=== PATIENT | female | born 1960 | race Caucasian/White ===

== ENCOUNTER 2021-03-12 11:39 | Outpatient (REF) | payer BC, SELFPAY ==
--- NOTE | ~2021-03-12 | MM_ITS ---
EXAMINATION: MM SCREENING DIGITAL BREAST TOMOSYNTHESIS, BILATERAL CLINICAL INFORMATION: Screening. Asymptomatic. The lifetime risk of breast cancer based on the Tyrer-Cuzick Model is 9%. COMPARISON: Mammography: 10/25/2019, 04/23/2019, 11/02/2018, 07/09/2017; targeted right breast ultrasound 10/25/2019, 04/23/2019, 10/23/2018 TECHNIQUE: Digital breast tomosynthesis is performed in both the craniocaudal and mediolateral oblique views along with computer-aided detection (CAD). Synthesized 2D images are generated from the tomosynthesis. FINDINGS: There are scattered areas of fibroglandular density (ACR BI-RADS breast composition Category b). Parenchymal pattern is similar to prior studies. The asymmetric density anterior upper right breast believed to be related to old trauma/fat necrosis is stable from prior diagnostic exams. There is no developing density or interval mass or architectural abnormality in either breast. No abnormal calcifications. The axilla and skin contours are unremarkable. MM/MM tomosynthesis screening BI IMPRESSION: No significant changes from prior studies. ASSESSMENT: BI-RADS 2: Benign RECOMMENDATION: Routine annual mammography screening. This patient's information was entered into a reminder system with a target due date for their next mammogram.
== END 2021-03-12 11:40 | disposition home or self-care (01) ==
LOC: HO.MAMMO 11:39
PROVIDERS: PCP Nurse Practitioner Family; Visit Provider Nurse Practitioner Family
DX: Z12.31 Encounter for screening mammogram for malignant neoplasm of breast (principal)
CPT/HCPCS: 77063; 77067

== ENCOUNTER 2022-03-13 11:41 | Outpatient (REF) | payer BC, SELFPAY ==
--- NOTE | ~2022-03-13 | MM_ITS ---
EXAMINATION: MM SCREENING DIGITAL BREAST TOMOSYNTHESIS, BILATERAL CLINICAL INFORMATION: Screening. Asymptomatic. The lifetime risk of breast cancer based on the Tyrer-Cuzick Model is 7%. COMPARISON: Mammography: 03/12/2021, 10/25/2019, 04/23/2019, 10/20/2018 TECHNIQUE: Digital breast tomosynthesis is performed in both the craniocaudal and mediolateral oblique views along with computer-aided detection (CAD). Synthesized 2D images are generated from the tomosynthesis. FINDINGS: There are scattered areas of fibroglandular density (ACR BI-RADS breast composition Category b). Parenchymal pattern is similar to prior studies and there is no developing density or architectural abnormality. No abnormal calcifications or significant mass. The axilla are unremarkable. The skin contours are smooth. MM/MM tomosynthesis screening BI IMPRESSION: No mammographic evidence of malignancy. ASSESSMENT: BI-RADS 1: Negative RECOMMENDATION: Routine annual mammography screening. This patient's information was entered into a reminder system with a target due date for their next mammogram.
== END 2022-03-13 11:42 | disposition home or self-care (01) ==
LOC: HO.MAMMO 11:41
PROVIDERS: Visit Provider Nurse Practitioner Family
DX: Z12.31 Encounter for screening mammogram for malignant neoplasm of breast (principal)
CPT/HCPCS: 77063; 77067

== ENCOUNTER 2023-04-16 09:34 | Outpatient (REF) | payer BC, SELFPAY | END 2023-04-16 09:35 | disposition home or self-care (01) | LOC: HO.MAMMO 09:34 | PROVIDERS: PCP Registered Nurse; Visit Provider Nurse Practitioner Family | DX: Z12.31 Encounter for screening mammogram for malignant neoplasm of breast (principal) | CPT/HCPCS: 77063; 77067 ==

== ENCOUNTER → 2023-04-16 09:45 | Outpatient (BNV) | payer BC, SELFPAY | PROVIDERS: PCP Registered Nurse; Visit Provider Radiology Diagnostic Radiology | DX: Z12.31 Encounter for screening mammogram for malignant neoplasm of breast (principal) | CPT/HCPCS: 77063; 77067 ==

== ENCOUNTER 2024-05-06 09:03 | Outpatient (REF) | payer BC, SELFPAY ==
--- NOTE | ~2024-05-06 | MM_ITS ---
EXAMINATION: MM SCREENING DIGITAL BREAST TOMOSYNTHESIS, BILATERAL CLINICAL INFORMATION: Screening. Asymptomatic. COMPARISON: Mammography: Comparison is made with available priors TECHNIQUE: Digital breast mammography with tomosynthesis is performed in both the craniocaudal and mediolateral oblique views along with computer-aided detection (CAD). FINDINGS: There are scattered areas of fibroglandular density (ACR BI-RADS breast composition Category b). There are no significant masses, abnormal calcifications, or other abnormalities. MM/MM tomosynthesis screening BI IMPRESSION: No mammographic evidence of malignancy. ASSESSMENT: BI-RADS BI-RADS 1 - Negative RECOMMENDATION: Routine annual mammography screening. 1 year F/U This examination should not preclude the clinical evaluation of a suspicious palpable abnormality. This patient's information was entered into a reminder system with a target due date for their next mammogram. Electronically signed by: Judy Jorgensen DO 05/17/2024 09:11 AM SEBASTIÁN
== END 2024-05-06 09:04 | disposition home or self-care (01) ==
LOC: HO.MAMMO 09:03
PROVIDERS: PCP Registered Nurse; Visit Provider Registered Nurse
DX: Z12.31 Encounter for screening mammogram for malignant neoplasm of breast (principal)
CPT/HCPCS: 77063; 77067

== ENCOUNTER → 2024-05-06 09:15 | Outpatient (BNV) | payer BC, SELFPAY | PROVIDERS: PCP Registered Nurse; Visit Provider Internal Medicine | DX: Z12.31 Encounter for screening mammogram for malignant neoplasm of breast (principal) | CPT/HCPCS: 77063; 77067 ==

== ENCOUNTER 2025-06-07 15:52 | Outpatient (REF) | payer MEDICARE, SELFPAY ==
--- OUTSIDE RECORDS SUMMARY | 2025-06-07 16:52 | XMS_ITS | Encounter Summary ---
Author Organization [facility] Address [address] [place] [phone] Phone Care Team Providers Care Tooth Cutter Clutch Name Role Phone Teri Vazquez NP Primary Care Provider + [phone] Blaze Thomas MD, PhD Unavailable [phone] Yazmin Redmond RN Unavailable [facility] [email or web address] Encounter Details Date Type Department Care Team (Late st Contact Info) Description 12/07/2024 Procedure Pass [facility] Admitting Dept Virtual Department [address] [place], [place] [id number] Social History Tobacco Use Types Packs/Day Years Used Date Smoking Tobacco: Former Cigarettes Q uit: 1999 Smokeless Tobacco: Never Alcohol Use Standard Drinks/Week Comments Not Currently 0 (1 standard drink = 0.6 oz pur e alcohol) Education Answer Date Recorded Are you interested in more education? Not on agnieszka e 10/11/2022 Are you concerned about learning? Not on file 10/11/2022 No 10/11/2022 No 10/11/2022 Digital Access Answer Date Recorded No 11/11/2022 No 11/11/2022 Reliable internet access at home? Not on file 11/11/2022 Device with a working camera? Not on file Intimate Partner Violence Answer Date R ecorded Are you denied basic needs s uch as food, clothing, or medical care? No 12/07/2024 In the past 12 months have y ou been in a relationship with a person who hurts, threatens, or tries to control you? No 12/07/2024 Are you denied basic needs s uch as food, clothing, or medical care? No 12/07/2024 In the past 12 months have y ou been in a relationship with a person who hurts, threatens, or tries to control you? No 12/07/2024 Comments Unknown Sex and Gender Information Value Date Recorded Sex Assigned at Not on file Legal Sex Female 9:47 PM EDT Gender Identity Not on file Sexual Orientation Not on file documented as of this encounter Plan of Treatment Upcoming Encounters Date Type Department Care Team (Late st Contact Info) Description 05/31/2025 Procedure Pass [facility] - Ul[facility]ound, [facility] [address] [place] [address] 06/03/2025 Procedure Pass [facility] - CT [address] [address] 06/06/2025 Procedure Pass [facility] [place], [place] [address], 2nd Floor, [address] [place] [address] 06/10/2025 10:00 AM EST Telemedicine [facility] [address] [facility], 7th Floor, [address] [place] [address] Shelby Kovacs CNP [address] [facility] [address] [place] [address] [email or web address] 06/13/2025 1:30 PM EST Appointment [facility] - Ultrasound, [facility] [address] [place] [address] Jose Jacobsen MD [address] [place] [address] [email or web address] 06/21/2025 1:00 PM EST Blood Draw [facility] [address] [facility], 7th Floor, [address] [place] [address] Blaze Thomas MD, PhD [address] [facility] [address] [place] [phone] SHAYNA@[email or web address] 06/21/2025 2:00 PM EST Office Visit [facility] [address] [facility], 7th Floor, [address] [place] [address] Shelby Kovacs, BLAIR [address] [facility] [address] [place] [address] [email or web address] 06/21/2025 2:30 PM EST Infusion [facility] [address], 7th Floor, [address] [place] [address] Blaze Thomas MD, PhD [address] [place] [address] [id number] [place] [phone] SHAYNA@[email or web address] 06/21/2025 3:00 PM EST Infusion [facility] [address] [place] [address], 8th Floor, [address] [place] [address] Blaze Thomas MD, PhD [address] [place] [address] [id number] [place] [phone] SHAYNA@[email or web address] Yazmin Redmond RN [address] [place] [address] [email or web address] 06/23/2025 11:30 AM EST Appointment [facility], [place] [address], 2nd Floor, [address] [place] [address] Victor Manuel Bone MD, MPH [address] [facility] [address] [place] [address] [email or web address] 07/14/2025 1:45 PM EST Blood Draw [facility] [address] [facility], 7th Floor, [address] [place] [address] 07/14/2025 2:30 PM EST Office Visit [facility] [address] [facility], 7th Floor, [address] [place] [address] Shelby Kovacs, BLAIR [address] [facility] [address] [place] [address] [email or web address] 07/14/2025 4:00 PM EST Infusion [facility] [address] [facility], 8th Floor, [address] [place] [address] Terrie Warren RN [address] [place] [address] [email or web address] 08/09/2025 9:30 AM EST Appointment [facility] - [facility] [address] [place] [address] Blaze Thomas MD, PhD [address] [place] [phone] [email or web address] documented as of this encounter Visit Diagnoses Not on filedocumented in this encounter Care Teams Tooth Cutter Clutch Relationship Specialty Start Date End Date Teri Vazquez NP [address] [place] [phone] PCP - General Nurse Practitioner 12/07/24 Blaze Thomas MD, PhD [address] [place] [phone] [email or web address] Primary Oncologist Medical Oncology 06/03/25 Yazmin Redmond, CHASE [address] [place] [phone] Primary Infusion Nurse 06/03/25 documented as of this encounter Additional Source Comments The information contained in this document represents components of the legal health record. It is not the complete legal health record.[facility]
--- OUTSIDE RECORDS SUMMARY | 2025-06-07 16:52 | XMS_ITS | Encounter Summary ---
Author Organization [facility] Address [address] [place] [address] Phone Care Team Providers Care History Faculty Member Name Role Phone Teri Vazquez NP Primary Care Provider [phone] Blaze Thomas MD, PhD Unavailable [phone] Yazmin Redmond RN Unavailable [email or web address] [email or web address] Encounter Details Date Type Department Care Team (Late st Contact Info) Description 04/26/2025 Procedure Pass MRI, [facility] Imaging - [address], [address] [place] [id number] Social History Tobacco Use Types Packs/Day Years [...] 05/31/2025 Procedure Pass [facility] - Ultrasound, [facility] [address] [place] [address] 06/03/2025 Procedure Pass [facility] - CT [address] [address] 06/06/2025 Procedure Pass [facility], [place] [address] [facility] [facility], 2nd Floor, [address] [place] [address] 06/10/2025 10:00 AM EST Telemedicine [facility] [address] [facility], 7th Floor, [address] [place] [address] Shelby Kovacs CNP [address] [facility] [address] [place] [address] [email or web address] 06/13/2025 1:30 PM EST Appointment [facility] - Ultrasound, [facility] [address] [place] [address] Jose Jacobsen MD [address] [place] [address] [email or web address] 06/21/2025 1:00 PM EST Blood Draw [facility] [address] [facility], 7th Floor, [address] [place] [address] Blaze Thomas MD, PhD [address] [facility] [address] [place] [phone] SHAYNA@[facility] 06/21/2025 2:00 PM EST Office Visit [facility] [address] [facility], 7th Floor, [address] [place] [address] Shelby Kovacs, RESOURCE ANALYST [address] [facility] [address] [place] [address] [email or web address] 06/21/2025 2:30 PM EST Infusion [facility] [address] [facility], 7th Floor, [address] [place] [address] Blaze Thomas MD, PhD [address] [place] [address] [place], [place] [phone] SHAYNA@[email or web address] 06/21/2025 3:00 PM EST Infusion [facility] [address] [facility], 8th Floor, [address] [place] [address] Blaze Thomas MD, PhD [address] [place], [place] [phone] SHAYNA@[email or web address] Yazmin Redmond RN [address] [place] [address] [email or web address] 06/23/2025 11:30 AM EST Appointment [facility], [place] [address] [facility], 2nd Floor, [address] [place] [address] Victor Manuel Bone MD, MPH 55 [facility] 5 [place] [address] [email or web address] 07/14/2025 1:45 PM EST Blood Draw [facility] [address] [facility], 7th Floor, [address] [place] [address] 07/14/2025 2:30 PM EST Office Visit [facility] [place] [address] [facility], 7th Floor, [address] [place] [address] Shelby Kovacs CNP [address] [facility] [address] [place] [address] [email or web address] 07/14/2025 4:00 PM EST Infusion [facility] [address] [facility], 8th Floor, [address] [place] [address] Terrie Warren RN [address] [place] [address] [email or web address] 08/09/2025 9:30 AM EST Appointment [facility] - [facility] [address] [place] [address] Blaze Thomas MD, PhD [address] [place] [phone] SHAYNA@[email or web address] documented as of this encounter Visit Diagnoses Not on filedocumented in this encounter Care Teams History Faculty Member Relationship Specialty Start Date End Date Teri Vazquez NP [address] [place] [phone] PCP - General Nurse Practitioner 12/07/24 Blaze Thomas MD, PhD [address] [place] [phone] [email or web address] Primary Oncologist Medical Oncology 06/03/25 Yazmin Redmond, CHASE [address] [place] [address] [email or web address] Primary Infusion Nurse 06/03/25 documented as of this encounter Additional Source Comments The information contained in this document represents components of the legal health record. It is not the complete legal health record.[facility]
--- OUTSIDE RECORDS SUMMARY | 2025-06-07 16:52 | XMS_ITS | Clinical Summary ---
Author Organization [facility] Address [address] [place] [id number] Phone Care Team Providers Care Service Engineer Name Role Phone Teri Vazquez NP Primary Care Provider Anayeli Thomas MD, PhD Unavailable [phone] Yazmin Redmond RN Unavailable [facility] [email or web address] Allergies Active Allergy Reactions Criticality Noted Date Comments Gabapentin 07/23/2023 Pysch changes Scallops Nausea and/or Vomiting 07/23/2023 Medications atorvastatin (LIPITOR) 20 MG tablet Take 20 mg by mouth daily. Active DULoxetine (CYMBALTA) 60 MG capsule Take 120 mg by mouth nightly at bedtime. Active cyclobenzaprine (FLEXERIL) 10 MG tablet Take 1 tablet by mouth every morning. 4 Active MOUNJARO 5 mg/0.5 mL PnIj subcutaneous pen Inject 5 mg under the skin once a week. 5 Active therapeutic multivitamin tablet Take 1 tablet by mouth daily. 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 She also has poor sleep and wakes up feeling unrested. She is currently doing well on duloxetine prescribed by her primary care provider. She should continue with duloxetine as prescribed by Yazmin Felton NP. I advised her to get daily physical activity which has been shown to relieve the pain from fibromyalgia. She does not need follow-up in rheumatology. 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) 05/31/2025 9:30 AM EST Office Visit [facility] [address] [place] [phone] Jose Jacobsen MD 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); Localized swelling, mass or lump of neck 05/31/2025 9:30 AM EST Office Visit [facility] [address] [place] [phone] Anayeli Thomas MD, PhD 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); Screening for hypothyroidism; Screening for endocrine disorder 05/31/2025 Orders Only [facility] [address] [place] [address] Jose Jacobsen MD 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) 05/30/2025 Orders Only [facility] [address] [place] [phone] Jose Jacobsen MD 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) 05/22/2025 1:46 PM EST - 05/22/2025 11:59 PM EST Hospital Encounter [facility], [facility] - [address], [address] [place] [address] Anayeli Thomas MD, PhD Discharge Disposition: Home or Self Care 05/19/2025 10:08 AM EST - 05/19/2025 11:59 PM EST Hospital Encounter [facility] - Pet Scan, [address] [place] [address] Anayeli Thomsa MD, PhD Discharge Disposition: Home or Self Care 04/26/2025 9:30 AM EST Office Visit [facility] [address] [place] [phone] Jose Jacobsen MD 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) 04/26/2025 9:30 AM EST Office Visit [facility] [address] [place] [phone] Anayeli Thomas MD, PhD 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) 04/26/2025 Procedure Pass MRI, [facility] - [address], [address] [place] [id number] 04/26/2025 Lab Requisition [facility] Lab Main [address] [place] [address] Anayeli Thomas MD, PhD Secondary malignant neoplasm of other specified sites 04/26/2025 Orders Only [facility]le[facility] Main [address] [place] [address] Mary Sawyer 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 04/26/2025 Orders Only [facility] [address] [place] [address] Anayeli Thomas MD, PhD 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) 04/21/2025 10:30 AM EST Office Visit [facility] Plastic Surgery [address] [address] Cynthia Chaparro PA-C Gray, Mackenzie Malcolm, PA Postop check (Primary Dx); Visit for suture removal; Malignant melanoma of skin of face 04/18/2025 Orders Only [address] [address] Jesus Nguyen MD 04/15/2025 Telephone [facility] Plastic [address] [address] Luisa Eddy CMA Post-op 04/14/2025 1:00 PM EDT Procedure visit [facility] [address] [place] [address] Jesus Nguyen MD Preauricular mass (Primary Dx) from Last 3 Months Family History Medical History Relation Comments Diabetes Father Hyperlipidemia Mother Relation Status Comments Father Mother Alive Social History Tobacco Use Types Packs/Day Years Used Date Smoking Tobacco: Former Cigarettes Q uit: 1999 Smokeless Tobacco: Never Tobacco Cessation:Counseling Given: Not Answered Alcohol Use Standard Drinks/Week Comments Not Currently [...] on file Sexual Orientation Not on file Last Filed Vital Signs Vital Sign Reading Time Taken Comments Blood Pressure 118/80 02/08/2025 9:04 AM EDT Pulse 100 02/08/2025 9:04 AM EDT Temperature 36 C (96.8 F) 12/07/2024 8:59 AM EDT Respiratory Rate 20 12/07/2024 9:08 AM EDT Oxygen Saturation 96% 12/07/2024 9:08 AM EDT Inhaled Oxygen Concentration - - Weight 56.2 kg (124 lb) 05/31/2025 9:49 AM EST Height 154.9 cm (5' 1 ) 05/31/2025 9:49 AM EST Body Mass Index 23.43 05/31/2025 9:49 AM EST Plan of Treatment Upcoming Encounters Date Type Department Care Team (Late st Contact Info) Description 05/31/2025 Procedure Pass [facility] - Ultrasound, [facility] [address] [place] [address] 06/03/2025 Procedure Pass [facility] - CT [facility] [address] [place] [address] 06/06/2025 Procedure Pass [facility] CT, [place] [address] [facility], 2nd Floor, [address] [place] [address] 06/10/2025 10:00 AM EST Telemedicine [facility] Pig[facility] Les[facility] [address], 7th Floor, [address] [place] [address] Shelby Kovacs, SLIP COVER SEAMSTRESS [address] [facility] [address] [place] [address] [email or web address] 06/13/2025 1:30 PM EST Appointment [facility] - Ultrasound, [facility] [address] [place] [address] Jose Jacobsen MD [address] [place] [address] [email or web address] 06/21/2025 1:00 PM EST Blood Draw [facility] [address] [facility], 7th Floor, [address] [place] [address] Anayeli Thomas MD, PhD [address] [facility] [address] [place] [phone] [email or web address] 06/21/2025 2:00 PM EST Office Visit [facility] [address] [place] [address], 7th Floor, [address] [place] [address] Shelby Kovacs, BLAIR [facility] [address] [place] [address] [email or web address] 06/21/2025 2:30 PM EST Infusion [facility] [address] [facility], 7th Floor, [address] [place] [address] Anayeli Thomas MD, PhD [address] [facility] [address] [place] [phone] [email or web address] 06/21/2025 3:00 PM EST Infusion [facility] [address] [place] [address], 8th Floor, [address] [place] [address] Anayeli Thomas MD, PhD [address] [facility] [address] [phone] [email or web address] Yazmin Redmond RN [address] [place] [address] [email or web address] 06/23/2025 11:30 AM EST Appointment [facility] CT, [place] [address] [facility], 2nd Floor, [address] [place] [address] Victor Manuel Bone MD, MPH [address] [facility] [address] [place] [address] [email or web address] 07/14/2025 1:45 PM EST Blood Draw [facility] [address] [facility], 7th Floor, [address] [place] [address] 07/14/2025 2:30 PM EST Office Visit [facility] [address] [facility], 7th Floor, [address] [place] [address] Shelby Kovacs SLIP COVER SEAMSTRESS [address] [facility] [address] [place] [address] [email or web address] 07/14/2025 4:00 PM EST Infusion [facility] [address] [facility], 8th Floor, [address] [place] [address] Terrie Warren RN [address] [place] [address] [email or web address] 08/09/2025 9:30 AM EST Appointment [facility] - CT [address] [place] [address] [facility] [place] [address] Anayeli Thomas MD, PhD [address] [facility] [address] [place] [phone] [email or web address] Health Maintenance Due Date Last Done Comments LIPID PANEL 1960 DEPRESSION SCREENING 1972 HEPATITIS C SCREENING 1978 HIV ONE-TIME SCREENING (18-65 YEARS) 1978 MAMMOGRAM 2000 COLOGUARD 2005 FIT TEST 2005 FOBT 2005 SIGMOIDOSCOPY 2005 VIRTUAL COLONOSCOPY 2005 RSV VACCINE (1 - Risk 50-74 years 1-dose series) 2010 PNEUMOCOCCAL VACCINES (50+ years) (2 of 2 - PCV) 06/23/2019 06/23/2018 INFLUENZA VACCINE (#1) 2025 , 05/03/2023, 04/05/2022, Additional history exists COVID-19 VACCINE (2024- season) 2025 03/15/2024, 03/15/2024, 05/03/2023, Additional history exists PAP SMEAR 10/22/2025 10/22/2022 SMOKING Hx and SMOKELESS TOBACCO SCREENING 05/31/2026 05/31/2025 Adult Td,Tdap Booster 09/08/2031 09/07/2021, 012 COLONOSCOPY 12/07/2034 12/07/2024 COLORECTAL CANCER SCREENING 12/07/2034 ZOSTER VACCINES Completed 01/18/2021, 09/25/2020 HEPATITIS A VACCINES Aged Out No long er eligible based on patient's age to complete this topic HIB VACCINES Aged Out No longer eligi ble based on patient's age to complete this topic MENINGOCOCCAL VACCINES (ACWY) Aged Out No longer eligible based on patient's age to complete this topic MENINGOCOCCAL VACCINES (B) Aged Out N o longer eligible based on patient's age to complete this topic Medical Devices Implanted Type Area [employer] 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 Device Identifier Shelf Expiration Date Model / Serial / Lot Metal [id number] Procedures Procedure Name Priority Date/Time Associated Diagnosis Comments MRI BRAIN WITH AND WITHOUT CONTRAST Routine 05/22/2025 2:36 PM EST 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 NM PET CT SKULL BASE TO MID THIGHS Routine 05/19/2025 11:44 AM EST 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 POCT GLUCOSE Routine 05/19/2025 10:19 AM EST SNAPSHOT NGS Routine 04/26/2025 3:10 PM EST 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 SNAPSHOT NGS Routine 04/26/2025 3:10 PM EST 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 HLA-A*02:01 GENOTYPING Routine 11:04 AM EST Secondary malignant neoplasm of other specified sites CBC AND DIFFERENTIAL Routine 04/26/2025 11:04 AM EST 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 CBC AND DIFFERENTIAL Routine 04/26/2025 11:04 AM EST 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 No intracranial metastases. 2. 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 Consider inclusion of arterial spin labeled (ASL) images at next surveillance imaging to exclude arteriovenous shunting given mild accompanying parenchymal signal changes. 3. Ill-defined signal abnormality corresponding to FDG avidity in the anterior right superficial parotid gland presumably represents postoperative change from recent excision. 4. No definite correlate to site of FDG avidity within the right external ear. Recommend correlation with direct inspection. 5. Although not enlarged, abnormal central T1 signal within the FDG avid right IIA node raises suspicion for metastasis. Narrative 05/25/2025 9:58 PM EST MRI BRAIN WITH AND WITHOUT CONTRAST Referring clinician's provided indication for this examination in [facility]: * Melanoma, stage 0/I/II, asymptomatic, initial workup TECHNIQUE: MRI BRAIN WITH AND WITHOUT CONTRAST Multi-sequence, multi-planar MRI of the brain was performed before and after intravenous contrast. COMPARISON: None FINDINGS: Brain Parenchyma: No evidence of acute infarct, mass lesion, or hemorrhage. Right frontal developmental venous anomaly with minor associated parenchymal signal changes. No enhancement suspicious for metastasis. Ventricular System and Extra-Axial Spaces: There is no evidence of midline shift or hydrocephalus. Extracranial Structures: Expected arterial flow signal is observed at the skull base. Partial visualized ACDF. Heterogeneous T2 signal within the superficial anterior right parotid (14:3) corresponding to the areas of FDG avidity. Equivocal FLAIR hyperintensity versus incomplete fat suppression within the right auricle corresponding to the site of abnormal FDG uptake (12:4) without correlate on other sequences. Abnormal central T1 hypointensity within a right level IIA node (16:68). Procedure Note Nelson Abebe MD - 05/25/2025 MRI BRAIN WITH AND WITHOUT CONTRAST Referring clinician's provided indication for this examination in [facility]: *Melanoma, stage 0/I/II, asymptomatic, initial workup TECHNIQUE: MRI BRAIN WITH AND WITHOUT CONTRAST Multi-sequence, multi-planar MRI of the brain was performed before andafter intravenous contrast. COMPARISON: None FINDINGS: Brain Parenchyma: No evidence of acute infarct, mass lesion, orhemorrhage. Right frontal developmental venous anomaly with minorassociated parenchymal signal changes. No enhancement suspicious formetastasis. Ventricular System and Extra-Axial Spaces: There is no evidence of midlineshift or hydrocephalus. Extracranial Structures: Expected arterial flow signal is observed at theskull base. Partial visualized ACDF. Heterogeneous T2 signal within thesuperficial anterior right parotid (14:3) corresponding to the areas ofFDG avidity. Equivocal FLAIR hyperintensity versus incomplete fatsuppression within the right auricle corresponding to the site of abnormalFDG uptake (12:4) without correlate on other sequences. Abnormal centralT1 hypointensity within a right level IIA node (16:68). IMPRESSION: 1. No intracranial metastases. 2. 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 3. Ill-defined signal abnormality corresponding to FDG avidity in theanterior right superficial parotid gland presumably representspostoperative change from recent excision. 4. No definite correlate to site of FDG avidity within the right externalear. Recommend correlation with direct inspection. 5. Although not enlarged, abnormal central T1 signal within the FDG avidright IIA node raises suspicion for metastasis. us Anayeli Thomas MD, PhD IMG MR HEAD/NECK Final Re sult * NM PET CT Skull Base to Mid Thighs (05/19/2025 11:44 AM EST) Anatomical Region Laterality Modality Positron Emissio n Tomography (PET) 05/20/2025 1:34 PM EST Impressions 05/20/2025 7:07 PM EST Moderately avid right anterior parotid lesion may represent metastatic disease or primary parotid lesion. Adjacent cutaneous and subcutaneous stranding may be inflammatory/postprocedural changes or possibly neoplastic. Consider MR evaluation. Moderately avid subcentimeter right level 2A lymph node may be reactive or metastatic. Small moderate focus of uptake in right ear could be inflammatory or neoplastic. Recommend direct inspection. Narrative 05/20/2025 7:07 PM EST NM PET CT SKULL BASE TO MID THIGHS INDICATION: *Skin cancer, staging. FDG PET/CT for subsequent treatment strategy. TECHNIQUE: 10 mCi F-18 FDG was injected. Approximately 60 minutes later, tomographic images of the body from skull base to proximal thigh were acquired with low dose attenuation correction CT. Images were reviewed in axial, coronal, and sagittal projections. The patient's blood glucose at the time of imaging was 98 mg/dl. PET images were obtained and processed using very low dose CT for attenuation correction and localization purposes only. No diagnostic CT images were obtained as part of this examination. Although incidental CT findings may be identified, this examination is not designed to provide diagnostic quality CT evaluation, and is not a substitute for diagnostic CT imaging. COMPARISON: None of the FINDINGS: NECK: Acquisition parameters and the field of view were optimized for the whole body and are suboptimal for assessment of the brain parenchyma. 1.6 x 0.9 cm right anterior parotid soft tissue density lesion with moderate uptake, SUV max 2.3 (3:60) with adjacent cutaneous and subcutaneous thickening, image 162 through 158. 8mm right level 2A lymph node with moderate uptake, SUV max 2.1, measuring 53. Small focus of uptake along right inferior earlobe, image 164. CHEST: There are no sites of FDG uptake outside physiologic distribution in the chest. Thoracic aortic calcification. ABDOMEN AND PELVIS: There are no sites of FDG uptake outside physiologic distribution in the abdomen or pelvis. MUSCULOSKELETAL: There are no sites of FDG uptake outside physiologic distribution in the skeleton. Moderate focal uptake along the right first costomanubrial joint, likely degenerative changes. Procedure Note Deepika Judd MBBS - 05/20/[address] SKULL BASE TO MID THIGHS INDICATION: *Skin cancer, staging. FDG PET/CT for subsequent treatment strategy. TECHNIQUE: 10 mCi F-18 FDG was injected. Approximately 60 minutes later, tomographicimages of the body from skull base to proximal thigh were acquired withlow dose attenuation correction CT. Images were reviewed in axial,coronal, and sagittal projections. The patient's blood glucose at the timeof imaging was 98 mg/dl. PET images were obtained and processed using very low dose CT forattenuation correction and localization purposes only. No diagnostic CTimages were obtained as part of this examination. Although incidental CT findings may be identified, this examination is notdesigned to provide diagnostic quality CT evaluation, and is not asubstitute for diagnostic CT imaging. COMPARISON: None of the FINDINGS: NECK: Acquisition parameters and the field of view were optimized for the wholebody and are suboptimal for assessment of the brain parenchyma. 1.6 x 0.9 cm right anterior parotid soft tissue density lesion withmoderate uptake, SUV max 2.3 (3:60) with adjacent cutaneous andsubcutaneous thickening, image 162 through 158. 8mm right level 2A lymphnode with moderate uptake, SUV max 2.1, measuring 53. Small focus of uptake along right inferior earlobe, image 164. CHEST: There are no sites of FDG uptake outside physiologic distribution in thechest. Thoracic aortic calcification. ABDOMEN AND PELVIS: There are no sites of FDG uptake outside physiologic distribution in theabdomen or pelvis. MUSCULOSKELETAL: There are no sites of FDG uptake outside physiologic distribution in theskeleton. Moderate focal uptake along the right first costomanubrial joint, likelydegenerative changes. IMPRESSION: Moderately avid right anterior parotid lesion may represent metastaticdisease or primary parotid lesion. Adjacent cutaneous and subcutaneousstranding may be inflammatory/postprocedural changes or possiblyneoplastic. Consider MR evaluation. Moderately avid subcentimeter right level 2A lymph node may be reactive ormetastatic. Small moderate focus of uptake in right ear could be inflammatory orneoplastic. Recommend direct inspection. us Anayeli Thomas MD, PhD IMG NM PET Final Res ult * POCT Glucose (05/19/2025 10:19 AM EST) Glucose 98 70 - 99 mg/dL 05/19/2025 10:24 AM EST [facility] Blood (Blood) 05/19/2025 10: 19 AM EST 05/19/2025 10:24 AM EST us Anayeli Thomas MD, PhD LAB POCT DOCKED DEVICE UN SOLICTED RESULTS Final Result [facility] [address] [place], [place] [id number] * SNAPSHOT NGS (04/26/2025 3:10 PM EST) Result 05/18/2025 9:12 AM EST [facility] DEPARTMENT OF PATHOLOGY MM Text Report TEST - [id number] Assay INDICATION FOR TEST: Skin Nodular Melanoma Involving Parotid Gland SPECIMEN(S) TESTED: [id number] A1 ([place], [place], [facility]) RESULTS: DNA Variants: Variants of Clinical/Potential Significance: BRAF NP_004324.2:p.Gly4 66Glu (NM_004333.6:c.139 7G>A) (46%) CTNNB1 NP_001895.1:p.Ser3 7Phe (NM_001904.3:c.110 C>T) (45%) MEN1 NP_000235.2:p.Ser2 58Leu (NM_000244.3:c.773 C>T) (72%) NF1 NP_000258.1:p.Arg4 16Ter (NM_000267.3:c.124 6C>T) (48%) NF1 NP_000258.1:p.Gly1 219Glu (NM_000267.3:c.365 6G>A) (45%) NOTCH2 NP_077719.2:p.Arg1 13Ter (NM_024408.4:c.337 C>T) (6%) TERT promoter variant (hg19 chr5:g.3835236D>A; c.-124C>T; C228T) (46%) Variants of Unknown Significance: ALK NP_004295.2:p.Cys4 87Tyr (NM_004304.5:c.146 0G>A) (44%) FLT4 NP_002011.2:p.Gly7 9Arg (NM_002020.5:c.235 G>A) (44%) FLT4 NP_002011.2:p.Pro1 116Thr (NM_002020.5:c.334 6C>A) (47%) KDR NP_002244.1:p.Pro3 51Thr (NM_002253.3:c.105 1C>A) (47%) KMT2C NP_733751.2:p.Val3 90Lys (NM_170606.3:c.116 8_1169delinsAA) (7%) NTRK1 NP_002520.2:p.Leu1 22Phe (NM_002529.4:c.364 C>T) (62%) PDGFRB NP_002600.1:p.Gly3 9Arg (NM_002609.4:c.115 G>A) (44%) PLCB4 NP_000924.3:p.Arg2 5Gly (NM_000933.4:c.73A >G) (50%) PLCB4 NP_000924.3:p.Glu1 086Lys (NM_000933.4:c.325 6G>A) (50%) Copy Number Variants: AKT3 Loss, low level EVA Loss, low level CCND1 High Gain DDR2 Gain, low level FGF19 High Gain FGFR3 Gain, low level FH Loss, low level JAK2 Loss MDM4 Loss, low level MRE11 Loss, low level MTAP Loss, low level NTRK1 Gain ROE6M3T Loss, low level Tumor Mutation [place]: High (25.9 mutations per megabase (mutations/Mb)), with a pattern consistent with exposure to ultraviolet radiation. INTERPRETATION: POSITIVE for reportable variants in AKT3, ALK, EVA, BRAF, CCND1, CTNNB1, DDR2, FGF19, FGFR3, FH, FLT4, JAK2, KDR, KMT2C, MDM4, MEN1, MRE11, MTAP, NF1, NOTCH2, NTRK1, PDGFRB, PLCB4, IBV9A3I, and TERT. TEST INFORMATION: This test utilizes Anchored Multiplex PCR (polymerase chain reaction) (AMP [1]) for single nucleotide variant (SNV), insertion/deletion (indel), and copy number detection in genomic DNA using the [employer] platform and [employer] NextSeq next generation sequencing (NGS). Briefly, a board-certified molecular pathologist performed microscopic review of routine H&E-stained sections using validated digital pathology or traditional microscopic workflows. The appropriate region(s) of interest were identified and circled, followed by tumor enrichment via macrodissection prior to nucleic acid extraction. The [employer] VariantPlex [employer] Solid Tumor v2 protocol was used to target the coding sequence of genes listed below. Illumina NextSeq 2 x 150 base paired-end sequencing reads were demutiplexed to generate FASTQ files that were transferred to the [employer] Analysis pipeline for read alignment to the hg19 human genome, variant detection, and annotation. This test has been validated to detect (1) SNV and indel variants at 5% allelic frequency or higher in target regions with sufficient read coverage, (2) gene level copy number variants, and (3) an approximated tumor mutation burden (TMB). TMB (tumor mutation burden): A numeric TMB prediction score (reported as mutations/megabase (Mb)) was generated after standard DNA somatic variant analysis, filtering, counting, and fitting based on the [employer] TMB model to provide a score that correlates with TMB as measured by whole exome sequencing (ALICIA). A summarized TMB category (high, intermediate or low) interpretation is also provided. Due to variability in panel-based TMB calculations, an intermediate range of 5-20 is adopted between the low and high categories. Disclaimer: TMB estimation based on variant counting in targeted panels is an approximation of tumor mutation burden as compared to other assays (e.g., ALICIA). Copy number analysis shows the following limitations: (1) aneuploidy cannot be distinguished from gene specific copy gains or copy losses, (2) limited sensitivity for borderline/weak copy gains or copy losses, (3) limited sensitivity in specimens with low tumor cellularity, (4) limited performance in poor quality specimens showing suboptimal coverage, and (5) absolute copy number status cannot be determined. The SNV/indel and CNV gene targets covered by this test are as follows (coding sequence): ABL1, ACVR1, AKT1, AKT2, AKT3, ALK, APC, AR, ARID1A, ARID1B, ARID2, EVA, ATR, ATRX, AURKA, B2M, BAP1, BARD1, BCOR, BLM, BMPR1A, BRAF, BRCA1, BRCA2, BRIP1, CCND1, CCND2, CCND3, CCNE1, CDH1, CDK12, CDK4, CDK6, CDKN2A, CDKN2B, CHD1, CHEK1, CHEK2, CIC, CSF1R, CTNNB1, DAXX, DDR2, DDX3X, DICER1, EGFR, EIF1AX, EP300, EPCAM, ERBB2, ERBB3, ERBB4, ERCC1, ERCC2, ESR1, EZH2, FANCA, FANCI, FANCL, FBXW7, FGF19, FGFR1, FGFR2, FGFR3, FGFR4, FH, FLCN, FLT1, FLT3, FLT4, FOXA1, FOXL2, FUBP1, GNA11, GNAQ, GNAS, H3F3A, H3F3B, KVSI1Y2X, LPEK3Y8F, HNF1A, HRAS, IDH1, IDH2, JAK1, JAK2, JAK3, KDM6A, KDR, KEAP1, KIT, KLF4, KMT2C, KMT2D (MLL2), KRAS, LZTR1, MAP2K1 (MEK1), MAP2K2 (MEK2), MAP3K1, MDM2, MDM4, MED12, MEN1, MET, MLH1, MPL, MRE11A, MSH2, MSH3, MSH6, MTAP, MTOR, MUC16, MUTYH, MYC, MYCN, MYOD1, NBN, NF1, NF2, NKX2-1, NOTCH1, NOTCH2, NOTCH3, NOTCH4, NPM1, NRAS, NTRK1, NTRK2, NTRK3, PALB2, PBRM1, PDGFRA, PDGFRB, PIK3CA, PIK3CB, PIK3R1, PLCB4, PMS2, POLD1, POLE, CZZ0D4O, BPU1O0P, PRKD1, PTCH1, PTEN, PTPN11, RAD50, RAD51, RAD51B, RAD51C, RAD51D, RAD54L, RAF1, RB1, RET, RHOA, RICTOR, RNF43, ROS1, SDHA, SDHB, SDHC, SDHD, SETD2, SF3B1, SMAD2, SMAD4, SMARCA4, SMARCB1, SMO, SRC, SRSF2, STAG2, STK11, SUFU, TERT, TGFBR2, TP53, TP63, TRAF7, TSC1, TSC2, TSHR, U2AF1, VHL, XRCC2, XRCC3. SCHMIDT ANALYSIS PIPELINE VERSION: 7.4.2 SCHMIDT ANALYSIS WEB APPLICATION VERSION: 7.4.4 MATCHED ANNOTATION FROM NCBI AND EMBL-TERESA (KIRAN) VERSION: 1.0 REFERENCES: Juan et al. Jordyn Med 2014;20(12):1479-8 4. [PMID: [id number]] This test was developed, and its performance characteristics were determined by the [facility]. It has not been cleared or approved by the U.S. Food and Drug Administration. The FDA has determined that such clearance or approval is not necessary. This test is used for clinical purposes. Pursuant to the requirements of CLIA 88, this laboratory has established and verified the test accuracy and precision. Testing was performed at the [facility], [facility], [address] [place] [address]. Signed by: Cheyanne Swan, Ph.D., [facility] Date: 05/18/2025 9:10AM 05/18/2025 9:12 AM EST [facility] DEPARTMENT OF PATHOLOGY MM See Results PDF See Pathologist Report 05/18/2025 9:12 AM EST [facility] DEPARTMENT OF PATHOLOGY MM Signing Provider [id number] 05/18/2025 9:12 AM EST [facility] DEPARTMENT OF PATHOLOGY MM Tissue - General (Skin) 04/26/2025 3:10 PM EST 05/04/2025 12:01 PM EST us Anayeli Thomas MD, PhD LAB MOLECULAR/CYTOGENETIC S ORDERABLES Final Result Performing Organization Address City/[facility]/ZIP Co de Phone Number [facility] [place] [address] * Lactate Dehydrogenase (LDH) (04/26/2025 11:04 AM EST) LDH 178 135 - 214 U/L 04/26/2025 12:36 PM EST [facility] Blood (Blood) Venipuncture / Unknown 04/26/2025 11:04 AM EST 04/26/2025 11:29 AM EST us Anayeli Thomas MD, PhD LAB BLOOD BKR [place] [address] * Comprehensive Metabolic Panel (CMP) (04/26/2025 11:04 AM EST) Sodium 139 136 - 145 mmol/L 04/26/2025 12:36 PM [facility] Potassium 4.0 3.4 - 5.1 mmol/L 04/26/2025 12:36 PM [facility] Chloride 102 98 - 107 mmol/L 04/26/2025 12:36 PM [facility] CO2 26 20 - 31 mmol/L 04/26/2025 12:36 PM [facility] Anion Gap 11 3 - 17 mmol/L 04/26/2025 12:36 PM [facility] BUN 19 6 - 23 mg/dL 04/26/2025 12:36 PM [facility] Creatinine 0.75 0.50 - 1.00 mg/dL 04/26/2025 12:36 PM [facility] eGFR 89 >59 mL/min/1. 73m2 04/26/2025 12:36 PM [facility] Comment:Estimated glomerular filtration rate calculated using the CKD-EPI refit equation. Glucose 86 70 - 99 mg/dL 04/26/2025 12:36 PM [facility] Calcium 9.3 8.5 - 10.5 mg/dL 04/26/2025 12:36 PM [facility] AST 22 9 - 32 U/L 04/26/2025 12:36 PM [facility] ALT 16 7 - 33 U/L 04/26/2025 12:36 PM [facility] Alkaline Phosphatase 46 40 - 130 U/L 04/26/2025 12:36 PM [facility] Bilirubin, Total 0.4 0.0 - 1.2 mg/dL 04/26/2025 12:36 PM [facility] Total Protein 7.2 6.4 - 8.3 g/dL 04/26/2025 12:36 PM [facility] Albumin 4.4 3.5 - 5.2 g/dL 04/26/2025 12:36 PM [facility] Globulin 2.8 1.9 - 4.1 g/dL 04/26/2025 12:36 PM [facility] Blood (Blood) Venipuncture / Unknown 04/26/2025 11:04 AM EST 04/26/2025 11:29 AM EST us Anayeli Thomas MD, PhD LAB BLOOD BKR ORDERABLES Final Result [facility] [address] [place] [address] * (ABNORMAL) CBC and Differential (04/26/2025 11:04 AM EST) WBC 7.66 4.00 - 11.00 K/uL 04/26/2025 11:56 AM [facility] RBC 4.48 4.00 - 5.20 M/uL 04/26/2025 11:56 AM [facility] Hemoglobin 13.5 12.0 - 16.0 g/dL 04/26/2025 11:56 AM [facility] Hematocrit 40.6 36.0 - 46.0 % 04/26/2025 11:56 AM [facility] MCV 90.6 80.0 - 100.0 fL 04/26/2025 11:56 AM [facility] MCH 30.1 27.0 - 31.0 pg 04/26/2025 11:56 AM [facility] MCHC 33.3 32.0 - 36.0 g/dL 04/26/2025 11:56 AM [facility] MPV 8.2(L) 8.4 - 12.0 fL 04/26/2025 11:56 AM [facility] RDW-CV 13.2 11.5 - 14.5 % 04/26/2025 11:56 AM [facility] PLT 316 150 - 450 K/uL 04/26/2025 11:56 AM [facility] Neutrophils 68.4 % 04/26/2025 11:56 AM [facility] Lymphocytes 19.6 % 04/26/2025 11:56 AM [facility] Monocytes 9.9 % 04/26/2025 11:56 AM [facility] Eosinophils 0.9 % 04/26/2025 11:56 AM [facility] Basophils 0.9 % 04/26/2025 11:56 AM [facility] Imm Grans 0.3 % 04/26/2025 11:56 AM [facility] NRBC 0.0 <=0.0 /100 WBCs 04/26/2025 11:56 AM [facility] Absolute Neutrophils 5.24 1.92 - 7.60 K/uL 04/26/2025 11:56 AM [facility] Absolute Lymphocytes 1.50 0.72 - 4.10 K/uL 04/26/2025 11:56 AM [facility] Absolute Monocytes 0.76 0.16 - 1.10 K/uL 04/26/2025 11:56 AM [facility] Absolute Eosinophils 0.07 0.00 - 0.50 K/uL 04/26/2025 11:56 AM [facility] Absolute Basophils 0.07 0.00 - 0.15 K/uL 04/26/2025 11:56 AM [facility] Absolute Imm Grans 0.02 0.00 - 0.09 K/uL 04/26/2025 11:56 AM [facility] Absolute NRBC 0.00 <=0.00 K cells/uL 04/26/2025 11:56 AM [facility] Absolute Neutrophils 5.24 1.92 - 7.60 K/uL 04/26/2025 11:56 AM [facility] Comment:Automated cell count . Manual ANC may differ if performed. Diff Type Auto 04/26/2025 11:56 AM [facility] Blood (Blood) Venipuncture / Unknown 04/26/2025 11:04 AM EST 04/26/2025 11:29 AM EST us Anayeli Thomas MD, PhD LAB BLOOD BKR ORDERABLES Final Result Performing Organization Address City/[facility]/ZIP Co de Phone Number [address] [address] * HLA-A*02:01 Genotyping (04/26/2025 11:04 AM EST) HLA Result Positive for HLA-A*02:01 (see attached PDF report) 05/20/2025 4:40 PM EST [facility] Blood (Blood) 04/26/2025 11: 04 AM EST 04/26/2025 3:13 PM EST us Anayeli Thomas MD, PhD LAB HLA ORDERABLES Final Result Performing Organization Address City/[facility]/ZIP Co de Phone Number [address] [address] * Anatomic Pathology (04/14/2025 12:00 AM EDT) 04/14/2025 04/14/2025 3:2 6 PM EDT Narrative SEE NARRATIVE - 04/15/2025 3:57 PM EDT [address] [address] Piston Maker: Art Singh MD Surgical Pathology Report FINAL PATHOLOGIC DIAGNOSIS: SKIN, RIGHT PREAURICULAR, EXCISION: NODULAR MELANOMA INVOLVING PAROTID GLAND. Note: The tumor likely represents a metastasis. No lymphoid tissue is identified. The tumor cells contain dense brown pigment. Immunostains reveal that the tumor cells are reactive with both [place] 1 and S100 in the cytoplasm. Electronically Signed Out By Imani Mckinnon MD By his/her signature above, the pathologist listed as making the Final Diagnosis certifies that he/she has personally reviewed this case and confirmed or corrected the diagnosis. CLINICAL HISTORY Preauricular mass (R22.0) SPECIMENS SUBMITTED: A: SKIN, RIGHT PREAURICULAR, EXCISION GROSS DESCRIPTION SKIN, RIGHT PREAURICULAR, EXCISION: Received in formalin is a 1.7 x 1.6 x 1.5 cm fluctuant peacock-pink nodule which is marked with ink and sectioned to reveal a smooth lined unilocular cystic cavity with hemorrhagic, amorphous peacock-red contents. A new accounts banking representative section is submitted in a single cassette labeled A1. Grossed by: SONNY Lira, SHANKAR([facility]) [id number] 04/14/2025 Grossing Staff: [id number] One or more of the reagents used in immunohistochemical testing in this case may not have been cleared or approved by the U.S. Food and Drug Administration (FDA). The FDA has determined that such clearance or approval is not necessary. These tests are used for clinical purposes. This should not be regarded as investigational or for research. These reagents' performance characteristics have been determined by the [facility]. This laboratory is certified under the Clinical Laboratory Improvement Amendments of 1988 (CLIA-88) as qualified to perform high complexity clinical laboratory testing. Immunohistochemistry is performed on formalin-fixed paraffin-embedded sections (unless otherwise specified) and on a Benchmark Ultra immunostainer which utilizes a proprietary polymer detection system. Positive, negative and internal controls, when present, stain appropriately. Patient Name: RAPHAEL BEDOYA : 1960 (Age: 64) Sex: F Institution: [facility] Location: [facility] Date of Operation: 04/14/2025 Date of Reported: 04/15/2025 15:57 Results To: Jesus Nguyen MD, PAT Vazquez PRESIDENT us Jesus Nguyen MD LAB PATHOLOGY ORDERABLES Final R esult SEE NARRATIVE * ENDOSCOPY, COLON (12/07/2024 8:32 AM EDT) Narrative Transcriptions Anayeli Pka MD - 12/07/2024 8:32 AM EDT [facility] Patient Name: Raphael Bedoya Attending MD:: ANAYELI PAK MD, Procedure Date: 12/07/2024 8:32 AM Date of : 1960 Age: 64 Admit Type: Outpatient Gender: Female Room: [facility] Referring MD: Teri Vazquez Exam Type: Colonoscopy Indications: Screening for colorectal malignant neoplasm, Last colonoscopy: November 2014 Medications: Propofol per Anesthesia Procedure: Informed consent was obtained from the patientafter discussion of the indications, limitations, alternatives, benefits, and risks of the procedure. Risks specifically discussed include but are not limited to medication reactions, missed lesions, bleeding, perforation, or the need for emergent surgery. Throughout the procedure, the patient's blood pressure, pulse, end-tidal CO2, and oxygensaturations were monitored continuously. The Olympus adult variable colonoscope [id number] #[id number] was introduced through the anus and advanced to the cecum, identified by appendiceal orifice andileocecal valve. The ileocecal valve, appendiceal orifice,and rectum were photographed. The colonoscopy was performed without difficulty. The patient tolerated the procedure well. The quality of the bowel preparation was excellent. The bowel preparationused was GoLYTELY via split dose instruction. Complications: No immediate complications. Estimated blood loss:None. Findings: The digital rectal exam was normal. Pertinent negatives include no palpable rectal lesions. Hemorrhoids were found on perianal exam. The retroflexed view of the distal rectum and anal verge was normal and showed no anal or rectal abnormalities. Many small and large-mouthed diverticula were foundin the sigmoid colon. The exam was otherwise without abnormality. Retroflexion in the right colon was performed. Impression: - Hemorrhoids found on perianal exam. - The distal rectum and anal verge are normal on retroflexion view. - Diverticulosis in the sigmoid colon. - The examination was otherwise normal. - No specimens collected. Recommendation: - High fiber diet. - Repeat colonoscopy in 10 years for screening purposes. ANAYELI PAK MD 12/07/2024 8:59:54 AM This report has been signed electronically. Number of Addenda: 0 Note Initiated On: 12/07/2024 8:32 AM Procedure Code(s): --- Professional --- 64143, Colonoscopy, flexible; diagnostic, including collection of specimen(s) by brushing or washing, when performed (separateprocedure) --- Technical --- 35729, Colonoscopy, flexible; diagnostic, including collection of specimen(s) by brushing or washing, when performed (separateprocedure) Diagnosis Code(s): --- Professional --- Z12.11, Encounter for screening for malignantneoplasm of colon K64.9, Unspecified hemorrhoids K57.30, Diverticulosis of large intestine without perforation or abscess without bleeding --- Technical --- Z12.11, Encounter for screening for malignantneoplasm of colon K64.9, Unspecified hemorrhoids K57.30, Diverticulosis of large intestine without perforation or abscess without bleeding CPT copyright 2021 [employer]. All rights reserved. The codes documented in this report are preliminary and upon day care aide reviewmay be revised to meet current compliance requirements. Procedure Date: 12/07/2024 8:32:[address] [place] [id number] us Teri Vazquez NP GI PROCEDURE ORDERABLES Alice sanches Result * Pap Test (10/22/2022 12:00 AM EDT) 10/22/2022 10/23/2022 9:2 7 AM EDT Narrative SEE NARRATIVE - 10/25/2022 1:49 PM EDT [address] [address] Piston Maker: Imani Mckinnon MD DENTAL HYGIENE ADMINISTRATIVE ASSISTANT Cytology Report FINAL DIAGNOSIS A. PAP SMEAR (SUREPATH) CE: SPECIMEN ADEQUACY: Satisfactory for evaluation; transformation zone present. INTERPRETATION: NEGATIVE FOR INTRAEPITHELIAL LESION OR MALIGNANCY. Electronically Signed Out By: MICHELE Jovel(ASCP) The Pap test is a screening test primarily for squamous cancers and precursors and has associated false-negative and false-positive results. New technologies such as liquid-based preparations may decrease but will not eliminate all false-negative results. Regular sampling and follow-up of unexplained clinical signs and symptoms are recommended to minimize false negative results. PROCEDURES/ADDENDA HPV Testing (Requested) Ordered Date: 10/23/2022 A. PAP SMEAR (SUREPATH) CE: Human Papilloma Virus Test NEGATIVE for high-risk Human Papilloma Virus types 16, 18, 45 and the Other high risk probe set (Includes 31, 33, 35, 39, 51, 52, 56, 58, 59, 66, 68) Note: Testing performed by [facility] HR-HPV analysis. Clinical correlation is advised. This HPV test was performed at [facility], [address] [place] [address]. This test has been FDA approved for SurePath cervical cytology specimens. The accuracy and precision of this test for all other specimen sources has been verified in the Cytopathology Laboratory of the [facility] and has not been cleared or approved by the U.S. Food and Drug Administration. Clinical correlation is advised. CLINICAL HISTORY Date of Last Menstrual Period: Not Provided Menstrual History: Unknown Other Clinical Conditions: Screening Pap SPECIMEN SOURCE A: PAP SMEAR (SUREPATH) CE Patient Name: RAPHAEL BEDOYA : 1960 (Age: 61) Sex: F Institution: [facility] Location: [facility] Date of Collection: 10/22/2022 Date of Reported: 10/25/2022 13:49 Results to: Teri Vazquez PRESIDENT Teri Vazquez GROUNDS MAINTENANCE MANAGER CYTOLOGY ORDERABLES Final Re sult SEE NARRATIVE from Last 3 Months or Most Recently Relevant to Health Maintenance Insurance [employer] MEDICARE SUPPLEMENT MEDICARE PART A & B [facility] MEDICARE SUPPLEMENT MEDICARE PART A & B [facility] MEDICARE SUPPLEMENT MEDICARE PART A & [place] [address] [place] [address] MEDICARE SUPPLEMENT MEDICARE PART A & B MEDICARE PART A & B MEDICARE PART A & B [facility] MEDICARE SUPPLEMENT MEDICARE PART A & B [facility] MEDICARE SUPPLEMENT MEDICARE PART A & B [facility] MEDICARE SUPPLEMENT MEDICARE PART A & B Care Teams Service Engineer Relationship Specialty Start Date End Date Teri Vazquez NP [address] [place] [address] PCP - General Nurse Practitioner 12/07/24 Anayeli Thomas MD, PhD [address] [place] [address] [id number] [place] [address] [email or web address] Primary Oncologist Medical Oncology 06/03/25 Yazmin Redmond RN [address] [place] [email or web address] Primary Infusion Nurse 06/03/25 Additional Source Comments The information contained in this document represents components of the legal health record. It is not the complete legal health record.[facility]
--- OUTSIDE RECORDS SUMMARY | 2025-06-07 16:52 | XMS_ITS | Encounter Summary ---
Author Organization [facility] Address [address] [facility] [address] [place] [address] Phone Care Team Providers Care Investment Representative Name Role Phone Teri Vazquez NP Primary Care Provider + [phone] Blaze Thomas MD, PhD Unavailable [phone] Yazmin Redmond RN Unavailable [facility] [email or web address] Reason for Referral * MRI/CAT Scan - New Request Specialty Diagnoses / Procedures Referred By Joselyn yi Referred To Contact Radiology Diagnoses Research exam Procedures CT Cardiac Victor Manuel Bone MD, MPH 55 [facility] 5 [place], [place] Phone: tel: fax: mailto:[email or web address] Referral ID Status Reason Start Date Expiration Date V isits Requested Visits Authorized [id number] New Request 06/06/2025 1 1 Encounter Details Date Type Department Care Team (Late st Contact Info) Description 06/06/2025 Orders Only [facility] Cardiology [address] [place] [address] Victor Manuel Bone MD, MPH 55 [facility] YA 5 [place], [place] [email or web address] Research exam (Primary Dx) Social History Tobacco Use Types Packs/Day Years Used Date Smoking Tobacco: Former Cigarettes Q uit: 2000 Smokeless Tobacco: Never Alcohol Use Standard Drinks/Week [...] 05/31/2025 Procedure Pass [facility] - Ultrasound, [facility] [address] [place] [address] 06/03/2025 Procedure Pass [facility] - CT [facility] [address] [place] [address] 06/06/2025 Procedure Pass [facility] CT, [place] 2 55 [facility], 2nd Floor, [address] [place] [address] 06/10/2025 10:00 AM EST Telemedicine [facility] [place] [facility] 32 [facility], 7th Floor, [address] [place] [address] Shelby Kovacs, RECORDING STUDIO SETUP WORKER 32 [facility] [address] [place] [address] [email or web address] 06/13/2025 1:30 PM EST Appointment [facility] - Ultrasound, [facility] 243 [facility] [place] [address] Jose Jacobsen MD [address] [place] [address] Shima@[email or web address] 06/21/2025 1:00 PM EST Blood Draw [facility] Melanoma and Pigmented Lesion [address], 7th Floor, [address] [place] [address] Blaze Thomas MD, PhD [address] [place] [address] [phone] SHAYNA@[facility] 06/21/2025 2:00 PM EST Office Visit [facility] Melanoma and Pigmented Lesion [place] 32 [facility], 7th Floor, [address] [place] [address] Shelby Kovacs, RECORDING STUDIO SETUP WORKER 32 [facility] [address] [place] [address] YAMIL@[email or web address] 06/21/2025 2:30 PM EST Infusion [facility] Melanoma and Pigmented Lesion [address], 7th Floor, [address] [place] [address] Blaze Thomas MD, PhD 55 [facility] [address] [place] [phone] SHAYNA@[email or web address] 06/21/2025 3:00 PM EST Infusion [facility] Infusion Center [address] [place] [address], 8th Floor, [address] [place] [address] Blaze Thomas MD, PhD 55 [facility] [address] [place] [phone] SHAYNA@[facility] Yazmin Redmond, RN 55 [place] [address] [email or web address] 06/23/2025 11:30 AM EST Appointment [facility] CT, [place] 2 55 [facility], 2nd Floor, [address] [place] [address] Victor Manuel Bone MD, MPH 55 [facility] YA 5 [place] [address] [email or web address] 07/14/2025 1:45 PM EST Blood Draw [facility]oma [facility] 32 [facility], 7th Floor, [address] [place] [address] 07/14/2025 2:30 PM EST Office Visit [facility] Melanoma [facility] Pig[facility] 32 [facility], 7th Floor, [address] [place] [address] Shelby Kovacs, RECORDING STUDIO SETUP WORKER [address] [place] [address] [address] [place] [address] YAMIL@[email or web address] 07/14/2025 4:00 PM EST Infusion [facility] Infusion Center 32 [facility], 8th Floor, [address] [place] [address] Terrie Warren, RN 55 [place] [address] [email or web address] 08/09/2025 9:30 AM EST Appointment [facility] [place] [address] [facility] [place] [address] Blaze Thomas MD, PhD 55 [facility] [address] [place] [phone] SHAYNA@[email or web address] Scheduled Orders Name Type Priority Associated Diagnoses Orde r Schedule CT Cardiac Imaging Routine Research exam Expected: 09/04/2025, Expires: 03/07/2026 POCT Creatinine (Enter/Edit) Point of Care Testing Routine Research exam Ordered: 06/06/2025 documented as of this encounter Visit Diagnoses Diagnosis Research exam- Primary documented in this encounter Care Teams Investment Representative Relationship Specialty Start Date End Date Teri Vazquez NP [address] [place] [phone] PCP - General Nurse Practitioner 12/07/24 Blaze Thomas MD, PhD [address] [place] [address] [address] [place] [phone] [email or web address] u Primary Oncologist Medical Oncology 06/03/25 Yazmin Redmond, CHASE 55 [place] [address] [email or web address] Primary Infusion Nurse 06/03/25 documented as of this encounter Additional Source Comments The information contained in this document represents components of the legal health record. It is not the complete legal health record.[facility]
--- OUTSIDE RECORDS SUMMARY | 2025-06-07 16:52 | XMS_ITS ---
Author Organization [facility] Address [address] [facility] [address] [place] [address] Phone Care Team Providers Care Clinical Psychology Professor Name Role Phone Teri Vazquez NP Primary Care Provider [phone] Blaze Thomas MD, PhD Unavailable Yazmin Redmond RN Unavailable [email or web address] Active Problems Problem Noted Date Diagnosed Date [...] She does not need follow-up in rheumatology. 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
--- OUTSIDE RECORDS SUMMARY | 2025-06-07 16:52 | XMS_ITS | Encounter Summary ---
Author Organization [facility] Address [address] [facility] [address] [place] [address] Phone Care Team Providers Care Lead Infrastructure Architect Name Role Phone Yazmin Felton MUSIC DIRECTOR Primary Care Provider Teri Vazquez MUSIC DIRECTOR Primary Care Provider [phone] Blaze Thomas MD, PhD Unavailable [phone] RuthvenYazmin RN Unavailable [email or web address] Encounter Details Date Type Department Care Team (Late st Contact Info) Description 11/27/2022 Procedure Pass [facility] Non-Invasive Cardiology [address] [place] [address] Social History Tobacco Use Types Packs/Day Years Used Date Smoking Tobacco: Never Assessed Education Answer Date Recorded Are you interested in more education? Not on agnieszka e 10/11/2022 Are you concerned about learning? Not on file 10/11/2022 No 10/11/2022 No 10/11/2022 Digital Access Answer Date Recorded No 11/11/2022 No 11/11/2022 Reliable internet access at home? Not on file 11/11/2022 Device with a working camera? Not on file Comments Unknown Sex and Gender Information Value Date Recorded Sex Assigned at Not on file Legal Sex Female 9:47 PM EDT Gender Identity Not on file Sexual Orientation Not on file documented as of this encounter Plan of Treatment Upcoming Encounters Date Type Department Care Team (Late st Contact Info) Description 05/31/2025 Procedure Pass [facility] - Ultrasound, Main [place] [address] [place] [address] 06/03/2025 Procedure Pass [facility] - CT [facility] [address] [place] [address] 06/06/2025 Procedure Pass [facility] CT, [place] 2 55 [facility], 2nd Floor, [address] [place] [address] 06/10/2025 10:00 AM EST Telemedicine [facility] Melanoma and Pigmented Lesion [address], 7th [facility], [address] [place] [address] Shelby Kovacs, JUVENILE DETENTION OFFICER [address] [place], [place] [address]E [place] [address] [email or web address] 06/13/2025 1:30 PM EST Appointment [facility] - Ultrasound, [facility] [address] [place] [address] Jose Jacobsen MD 243 [place] [address] Shima@[email or web address] 06/21/2025 1:00 PM EST Blood Draw [facility] Melanoma and Pigmented Lesion [address], 7th Floor, [address] [place] [address] Blaze Thomas MD, PhD 55 [facility] [address] [place] [phone] SHAYNA@[facility] 06/21/2025 2:00 PM EST Office Visit [facility] Melanoma and Pigmented Lesion [address], 7th Floor, [address] [place] [address] Shelby Kovacs, JUVENILE DETENTION OFFICER [address] [place] [address] [address] [place] [address] [email or web address] 06/21/2025 2:30 PM EST Infusion [facility] Melanoma and Pigmented Lesion Center 32 [facility], 7th Floor, [address] [place] [address] Blaze Thomas MD, PhD 55 [facility] [address] [place] [phone] SHAYNA@[facility] 06/21/2025 3:00 PM EST Infusion [facility] Infusion Center 32 [facility], 8th Floor, [address] [place] [address] Blaze Thomas MD, PhD 55 [facility] [address] [place] [phone] SHAYNA@[email or web address] Yazmin Redmond RN 55 [place], [place] [email or web address] 06/23/2025 11:30 AM EST Appointment [facility] CT, [place] 2 55 [facility], 2nd Floor, [address] [place] [address] Victor Manuel Bone MD, MPH 55 [facility] 5 [place] [address] [email or web address]@[email or web address] 07/14/2025 1:45 PM EST Blood Draw [facility] Melanoma and Pigmented Lesion Center 32 [facility], 7th Floor, [address] [place] [address] 07/14/2025 2:30 PM EST Office Visit [facility] Melanoma and Pigmented Lesion [facility] 32 [facility], 7th Floor, [address] [place] [address] Shelby Kovacs, JUVENILE DETENTION OFFICER 32 [facility] [address] [place] [address] YAMIL@[email or web address] 07/14/2025 4:00 PM EST Infusion [facility] Infusion Center 32 [facility], 8th Floor, [address] [place] [address] Terrie Warren RN [address] [place] [address] [email or web address] 08/09/2025 9:30 AM EST Appointment [facility] - CT Main [place] [address] [facility] [place] [address] Blaze Thomas MD, PhD [address] [place] [phone] SHAYNA@[email or web address] documented as of this encounter Visit Diagnoses Not on filedocumented in this encounter Care Teams Lead Infrastructure Architect Relationship Specialty Start Date End Date Yazmin Felton NP [address] [place] [address] [email or web address] PCP - General Family Medicine 07/20/19 12/06/24 Teri Vazquez NP [address] [place] [phone] PCP - General Nurse Practitioner 12/07/24 Blaze Thomas MD, PhD [address] [place] [phone] SHAYNA@[email or web address] u Primary Oncologist Medical Oncology 06/03/25 Yazmin Redmond RN [address] [place] [address] [email or web address] Primary Infusion Nurse 06/03/25 documented as of this encounter Additional Source Comments The information contained in this document represents components of the legal health record. It is not the complete legal health record.[facility]
--- OUTSIDE RECORDS SUMMARY | 2025-06-07 16:52 | XMS_ITS | Encounter Summary ---
Author Organization [facility] Address [address] [place] [address] Phone Care Team Providers Care Central Supply Manager Name Role Phone George Teri COACH Primary Care Provider [phone] Blaze Thomas MD, PhD Unavailable [phone] Yazmin Redmond RN Unavailable counts include 234 beds at [email or web address] Encounter Details Date Type Department Care Team (Late st Contact Info) Description 04/26/2025 Lab Requisition [facility] [place] Main [address] [place] [address] Blaze Thomas MD, PhD [address] [place] [address] S[address]200 [place] [phone] SHAYNA@[email or web address] Secondary malignant neoplasm of other specified sites Social History Tobacco Use Types Packs/Day Years [...] 05/31/2025 Procedure Pass [facility] - Ultrasound, [address] [address] 06/03/2025 Procedure Pass [facility] - CT [address] [address] 06/06/2025 Procedure Pass [facility] [place], [place] 2 55 [facility], 2nd Floor, [address] [place] [address] 06/10/2025 10:00 AM EST [facility]icine [facility] [place] [facility]oma [facility] 32 [facility], 7th Floor, [address] [place] [address] Shelby Kovacs MEDICAL OR SURGICAL INSTRUMENT MAKER 32 [facility] [address]E [place] [address] YAMIL@[email or web address] 06/13/2025 1:30 PM EST Appointment [facility] - Ultrasound, [address] [address] Jose Jacobsen MD [address] [place] [address] Shima@[email or web address] 06/21/2025 1:00 PM EST Blood Draw [facility] Melanoma and Pigmented Lesion Center 32 [facility], 7th Floor, [address] [place] [address] Blaze Thomas MD, PhD 55 [facility] [address] [phone] SHAYNA@[email or web address] 06/21/2025 2:00 PM EST Office Visit [facility] Melanoma and Pigmented Lesion Center 32 [facility], 7th Floor, [address] [place] [address] Shelby Kovacs, MEDICAL OR SURGICAL INSTRUMENT MAKER 32 [facility] [address]E [place] [address] [email or web address] 06/21/2025 2:30 PM EST Infusion [facility] Melanoma and Pigmented Lesion Center 32 [facility], 7th Floor, [address] [place] [address] Blaze Thomas MD, PhD 55 [facility] [address] [phone] SHAYNA@[email or web address] 06/21/2025 3:00 PM EST Infusion [facility] Infusion Center 32 [facility], 8th Floor, [address] [place] [address] Blaze Thomas MD, PhD 55 [facility] [address] [phone] SHAYNA@[email or web address] Yazmin Redmond RN 55 [place], [place] [email or web address] 06/23/2025 11:30 AM EST Appointment [facility] [place], [place] 2 55 [facility], 2nd Floor, [address] [place], [place] [phone] Victor Manuel Bone MD, MPH 55 [facility] YAW 5 [place] IWONA@[facility] 07/14/2025 1:45 PM EST Blood Draw [facility] Melanoma and Pigmented Lesion Center 32 [facility], 7th Floor, [address] [place] [address] 07/14/2025 2:30 PM EST Office Visit [facility] Melanoma and Pigmented Lesion [place] 32 [facility], 7th Floor, [address] [place] [address] Shelby Kovacs, MEDICAL OR SURGICAL INSTRUMENT MAKER 32 [facility] [address] [place] [address] YAMIL@[email or web address] 07/14/2025 4:00 PM EST Infusion [facility] Infusion Center 32 [facility], 8th Floor, [address] [place] [address] Terrie Warren RN 55 [place] [address] [email or web address] 08/09/2025 9:30 AM EST Appointment [facility] - [facility] [address] [facility] [place] [address] Blaze Thomas MD, PhD 55 [facility] S50[address] [place] [phone] SHAYNA@[email or web address] documented as of this encounter Procedures Procedure Name Priority Date/Time Associated Diagnosis Comments HLA-A*02:01 GENOTYPING Routine 04/26/2025 11:04 AM EST Secondary malignant neoplasm of other specified sites documented in this encounter Results * HLA-A*02:01 Genotyping (04/26/2025 11:04 AM EST) HLA Result Positive for HLA-A*02:01 (see attached PDF report) 05/20/2025 4:40 PM EST [facility] Blood (Blood) 04/26/2025 11: 04 AM EST 04/26/2025 3:13 PM EST us Blaze Thomas MD, PhD LAB HLA ORDERABLES Final Result [facility] 55 [place] [address] documented in this encounter Visit Diagnoses Diagnosis Secondary malignant neoplasm of other specified sites documented in this encounter Care Teams Central Supply Manager Relationship Specialty Start Date End Date Teri Vazquez NP [address] [place] [phone] PCP - General Nurse Practitioner 12/07/24 Blaze Thomas MD, PhD [address] [place] [address] [address] [place] [phone] SHAYNA@[email or web address] u Primary Oncologist Medical Oncology 06/03/25 Yazmin Redmond RN 55 [place] [address] [email or web address] Primary Infusion Nurse 06/03/25 documented as of this encounter Additional Source Comments The information contained in this document represents components of the legal health record. It is not the complete legal health record.[facility]
--- OUTSIDE RECORDS SUMMARY | 2025-06-07 16:52 | XMS_ITS | Encounter Summary ---
Author Organization [facility] Address [address] [place] [address] Phone Care Team Providers Care Pattern Scratcher Name Role Phone Teri Vazquez NP Primary Care Provider + [phone] Blaze Thomas MD, PhD Unavailable Yazmin Redmond RN Unavailable [facility] [email or web address] Encounter Details Date Type Department Care Team (Late st Contact Info) Description 06/01/2025 Ancillary Orders [facility] Imaging - Ultrasound, [facility] [address] [place] [address] Jose Jacobsen MD [address] [place] [phone] [email or web address] 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) Social History Tobacco Use Types [...] 05/31/2025 Procedure Pass [facility] - Ultrasound, [address] [address] 06/03/2025 Procedure Pass [facility] - CT [address] [address] 06/06/2025 Procedure Pass [facility], [place] [address] [facility], 2nd Floor, [address] [place] [address] 06/10/2025 10:00 AM EST Telemedicine [facility] [place] [facility] [address] [facility], 7th Floor, [address] [place] [address] Shelby Kovacs EXPERIMENTAL TECHNICIAN [address] [facility] [address] [place] [address] [email or web address] 06/13/2025 1:30 PM EST Appointment [facility] - Ultrasound, [address] [address] Jose Jacobsen MD [address] [place] [address] [email or web address] 06/21/2025 1:00 PM EST Blood Draw [facility] [address] [facility], 7th Floor, [address] [place] [address] Blaze Thomas MD, PhD [address] [facility] [address] [phone] SHAYNA@[facility] 06/21/2025 2:00 PM EST Office Visit [facility] [address] [facility], 7th Floor, [address] [place] [address] Shelby Kovacs, EXPERIMENTAL TECHNICIAN [address] [facility] [address] [place] [address] [email or web address] 06/21/2025 2:30 PM EST Infusion [facility] [address] [facility], 7th Floor, [address] [place] [address] Blaze Thomas MD, PhD 55 [facility] [address] [phone] SHAYNA@[facility] 06/21/2025 3:00 PM EST Infusion [facility] [address] [place] [address], 8th Floor, [address] [place] [address] Blaze Thomas MD, PhD 55 [facility] [address] [phone] SHAYNA@[email or web address] Yazmin Redmond, CHASE [address] [place], [place] [email or web address] 06/23/2025 11:30 AM EST Appointment [facility], [place] [address] [facility], 2nd Floor, [address] [place] [address] Victor Manuel Bone MD, MPH 55 [facility] [address] [place] [address] [email or web address] 07/14/2025 1:45 PM EST Blood Draw [facility] [address] [facility], 7th Floor, [address] [place] [address] 07/14/2025 2:30 PM EST Office Visit [facility] [place] [address] [facility], 7th Floor, [address] [place] [address] Shelby Kovacs, EXPERIMENTAL TECHNICIAN [address] [place] [address] [address] [place] [address] YAMIL@[email or web address] 07/14/2025 4:00 PM EST Infusion [facility] [address] [place] [address], 8th Floor, [address] [place] [address] Terrie Warren RN [address] [place] [address] [email or web address] 08/09/2025 9:30 AM EST Appointment [facility] - [facility] [address] [place] [address] Blaze Thomas MD, PhD 55 [facility] [address] [place] [phone] SHAYNA@[email or web address] Scheduled Orders Name Type Priority Associated Diagnoses Orde r Schedule US Soft Tissues of Head and Neck (Lymph Node Survey) Imaging Routine 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 Expected: 06/01/2025, Expires: 08/30/2025 documented as of this encounter Visit Diagnoses Diagnosis 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- Primary documented in this encounter Care Teams Pattern Scratcher Relationship Specialty Start Date End Date Teri Vazquez NP [address] [place] [phone] PCP - General Nurse Practitioner 12/07/24 Blaze Thomas MD, PhD [address] [place] [address] [address] [place] [phone] [email or web address] u Primary Oncologist Medical Oncology 06/03/25 Yazmin Redmond RN [address] [place] [phone] [email or web address] Primary Infusion Nurse 06/03/25 documented as of this encounter Additional Source Comments The information contained in this document represents components of the legal health record. It is not the complete legal health record.[facility]
--- OUTSIDE RECORDS SUMMARY | 2025-06-07 16:52 | XMS_ITS | Encounter Summary ---
Author Organization [facility] Address [address] [facility] [address] [place] [address] Phone Care Team Providers Care Accounting Software Specialist Name Role Phone Teri Vazquez NP Primary Care Provider + [phone] Blaze Thomas MD, PhD Unavailable [phone] Yazmin Redmond RN Unavailable [email or web address] Reason for Referral * MRI/CAT Scan - New Request Specialty Diagnoses / Procedures Referred By Joselyn t Referred To Contact Radiology Diagnoses 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 Procedures CT Neck Blaze Thomas MD, PhD [address] [place] [phone] Phone: tel: fax: mailto:[email or web address] Referral ID Status Reason Start Date Expiration Date V isits Requested Visits Authorized [id number] New Request 06/03/2025 1 1 Encounter Details Date Type Department Care Team ([facility] st Contact Info) Description 06/03/2025 Orders Only [facility] [address] [place] [address] Blaze Thomas MD, PhD [address] [place] [phone] SHAYNA@[email or web address] russ.[email or web address] 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, 2nd Floor, [address] [place] [address] 06/10/2025 10:00 AM EST Telemedicine [facility] [place] [facility] [address] [facility], 7th Floor, [address] [place] [address] Shelby Kovacs, NEGATIVE RETOUCHER [address] [facility] [address] [place] [address] [email or web address] 06/13/2025 1:30 PM EST Appointment [facility] - Ultrasound, [facility] [address] [facility] [place] [address] Jose Jacobsen MD [address] [place] [address] [email or web address] 06/21/2025 1:00 PM EST Blood Draw [facility] [address] [place] [address], 7th Floor, [address] [place] [address] Blaze Thomas MD, PhD 55 [facility] [address] [place] [phone] SHAYNA@[email or web address] 06/21/2025 2:00 PM EST Office Visit [facility] 32 [facility], 7th Floor, [address] [place] [address] Shelby Kovacs, NEGATIVE RETOUCHER [address] [facility] [address] [place] [address] YAMIL@[facility] 06/21/2025 2:30 PM EST Infusion [facility] 32 [facility], 7th Floor, [address] [place] [address] Blaze Thomas MD, PhD [address] [facility] [address] [place] [phone] SHAYNA@[email or web address] 06/21/2025 3:00 PM EST Infusion [facility] Infusion Center [address] [place] [address], 8th Floor, [address] [place] [address] Blaze Thomas MD, PhD [address] [facility] [address] [place] [phone] SHAYNA@[email or web address] Yazmin Redmond RN [address] [place] [address] [email or web address] 06/23/2025 11:30 AM EST Appointment [facility] CT, [place] [address] [facility], 2nd Floor, [address] [place] [address] Victor Manuel Bone MD, MPH [address] [facility] [address] [place] [address] [email or web address] 07/14/2025 1:45 PM EST Blood Draw [facility] 32 [facility], 7th Floor, [address] [place] [address] 07/14/2025 2:30 PM EST Office Visit [facility] 32 [facility], 7th Floor, [address] [place] [address] Shelby Kovacs, NEGATIVE RETOUCHER [address] [facility] [address] [place] [address] YAMIL@[facility] 07/14/2025 4:00 PM EST Infusion [facility] Infusion Center 32 [facility], 8th Floor, [address] [place] [address] Terrie Warren, RN [address] [place] [address] [email or web address] 08/09/2025 9:30 AM EST Appointment [facility] - CT Main [place] [address] [facility] [place] [address] Blaze Thomas MD, PhD [address] [facility] [address] [place] [phone] SHAYNA@[email or web address] Scheduled Orders Name Type Priority Associated Diagnoses Orde r Schedule CT Neck Imaging Routine 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 Expected: 08/04/2025, Expires: 11/02/2025 documented as of this encounter Visit Diagnoses Diagnosis 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- Primary documented in this encounter Care Teams Accounting Software Specialist Relationship Specialty Start Date End Date Teri Vazquez NP [address] [place] [phone] PCP - General Nurse Practitioner 12/07/24 Blaze Thomas MD, PhD [address] [place] [address] [address] [place] [phone] [email or web address] u Primary Oncologist Medical Oncology 06/03/25 Yazmin Redmond RN [address] [place] [address] [email or web address] Primary Infusion Nurse 06/03/25 documented as of this encounter Additional Source Comments The information contained in this document represents components of the legal health record. It is not the complete legal health record.[facility]
--- OUTSIDE RECORDS SUMMARY | 2025-06-07 16:52 | XMS_ITS | Clinical Summary ---
Author Organization [facility] Address [address] [place] [address] Care Team Providers Care Technician Anatomic Pathology Name Role Phone Yazmin Felton Primary Care Provider [phone] Allergies No known active allergies Medications DULoxetine DR (CYMBALTA) 60 mg capsule TAKE 2 CAPSULES BY MOUTH EVERY DAY AT BEDTIME 1 Active mirtazapine (REMERON) 30 mg tablet TAKE 1 TABLET BY MOUTH EVERYDAY AT BEDTIME 1 Active metFORMIN ER (GLUCOPHAGE XR) 500 mg tablet Take 500 mg by mouth 2 times a day. 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 Social History Tobacco Use Types Packs/Day Years Used Date Smoking Tobacco: Never Assessed Comments Unknown Sex and Gender Information Value Date Recorded Sex Assigned at Not on file Legal Sex Female 9:26 AM EST Gender Identity Not on file Sexual Orientation Not on file Last Filed Vital Signs Vital Sign Reading Time Taken Comments Blood Pressure 137/83 08/29/2020 8:21 AM EDT Pulse 118 08/29/2020 8:21 AM EDT Temperature - - Respiratory Rate - - Oxygen Saturation - - Inhaled Oxygen Concentration - - Weight 86.6 kg (191 lb) 08/29/2020 8:21 AM EDT Height 160 cm (5' 3 ) 08/29/2020 8:21 AM EDT Body Mass Index 33.83 08/29/2020 8:21 AM EDT Plan of Treatment Health Maintenance Due Date Last Done Comments Cervical Cancer Screening 1960 Cologuard 1960 Colon Cancer Screening 1960 Colonoscopy 1960 FOBT / Fit Test 1960 HIV Screening 1960 HPV and Pap Smear 1960 Pap Smear 1960 Sigmoidoscopy 1960 DTaP,Tdap,and Td Vaccines (1 - Tdap) 1982 Mammogram 2000 Pneumococcal Vaccine: 50+ Ye ars (1 of 1 - PCV) 2010 Zoster Vaccines (1 of 2) 2010 Alcohol/Substance Use Screening 06/16/2024 Influenza Vaccine (#1) 2025 COVID-19 Vaccine (1 - 2024-2 6 season) 2025 RSV Vaccine (60+ years old a nd patients) (1 - 1-dose 75+ series) 11/21/2035 Hepatitis B Vaccines Aged Out No long er eligible based on patient's age to complete this topic Insurance BCBS OUT OF STATE PPO Care Teams Technician Anatomic Pathology Relationship Specialty Start Date End Date Yazmin Felton [address] [place] [phone] PCP - General Family Medicine 08/10/20
== END 2025-06-07 15:53 | disposition home or self-care (01) ==
LOC: HO.MAMMO 15:52
PROVIDERS: PCP Registered Nurse; Visit Provider Registered Nurse
DX: Z12.31 Encounter for screening mammogram for malignant neoplasm of breast (principal)
CPT/HCPCS: 77063; 77067

== ENCOUNTER → 2025-06-07 16:00 | Outpatient (BNV) | payer MEDICARE, SELFPAY | PROVIDERS: PCP Registered Nurse; Visit Provider Internal Medicine | DX: Z12.31 Encounter for screening mammogram for malignant neoplasm of breast (principal) | CPT/HCPCS: 77063; 77067 ==